=== PATIENT | female | born 2000 | race Two or more races ===

== ENCOUNTER 2021-10-20 21:32 | Emergency (ER) | payer OTHER ==
[~2021-10-20] VITALS: Ht 152.4 cm; Wt 68.0 kg
[2021-10-20] MEDS ORDERED: PRENATE ELITE1 EAC2 (21:50)
[2021-10-20] MEDS ORDERED: METRONIDAZOLE500 MG PO (23:56)
[2021-10-20] MEDS ORDERED: PEPCID AC20 MG PO (23:56)
[2021-10-20] MEDS ORDERED: ZOFRAN8 MG PO (23:56)
== END 2021-10-21 04:32 | disposition home or self-care (01) ==
LOC: ER 21:32
DX: O99.611 Diseases of the digestive system complicating pregnancy, first trimester (principal); K92.89 Other specified diseases of the digestive system; K52.9 Noninfective gastroenteritis and colitis, unspecified; Z3A.11 11 weeks gestation of pregnancy

== ENCOUNTER 2021-10-22 13:48 | Inpatient (IN) | payer OTHER ==
[~2021-10-22] VITALS: Ht 152.4 cm; Wt 68.0 kg
[~2021-10-22 13:48] MED LIST: METRONIDAZOLE500 MG PO; PEPCID AC20 MG PO; PRENATE ELITE1 EAC2; ZOFRAN8 MG PO
== END 2021-10-26 13:42 | disposition home or self-care (01) | DRG 833 ==
LOC: ER 13:48 → OB/GYN 16:29
PROVIDERS: ADMIT Obstetrics & Gynecology; ATTEND Obstetrics & Gynecology
PROC: 4A1HXCZ Monitoring of Products of Conception, Cardiac Rate, External Approach (ICD-10-PCS; principal; 2021-10-22)
DX: O26.891 Other specified pregnancy related conditions, first trimester (principal); K52.89 Other specified noninfective gastroenteritis and colitis; Z3A.12 12 weeks gestation of pregnancy; Z20.822 Contact with and (suspected) exposure to COVID-19

== ENCOUNTER 2022-04-26 14:00 | Emergency (ER) | payer OTHER ==
[~2022-04-26] VITALS: Ht 152.4 cm; Wt 76.2 kg
== END 2022-04-26 20:04 | disposition home or self-care (01) ==
LOC: ER 14:00
DX: O98.513 Other viral diseases complicating pregnancy, third trimester (principal); J06.9 Acute upper respiratory infection, unspecified; Z3A.36 36 weeks gestation of pregnancy; Z20.822 Contact with and (suspected) exposure to COVID-19